=== PATIENT | female | born 1970 | race Caucasian/White ===

== ENCOUNTER 2019-05-09 20:19 | Emergency (ER) | payer SELFPAY ==
[~2019-05-09] VITALS: Ht 157.4 cm; Wt 79.4 kg
[~2019-05-09 20:19] MED LIST: AUGMENTIN 875 M1 TAB PO; CLINDAMYCIN HC300 MG PO; DILAUDID2 M1 PO; DILAUDID2 MG PO; HYDRO PO; KEFLEX500 MG PO; LINZESS145 MC1 PO; METHADONE5 MG PO; MOTRIN800 MG PO; NORTRIPTYLINE10 MG PO; PHENERGAN12.5 M1 PO; PREVACID30 M1 PO; [UNRECOGNIZED DRUG - OTHER] PO
[2019-05-09 20:33] VITALS: BP 122/67
== END 2019-05-10 00:45 | disposition home or self-care (01) ==
LOC: ED 20:19
DX: M77.9 Enthesopathy, unspecified (principal); M25.521 Pain in right elbow; Z79.899 Other long term (current) drug therapy; Z90.49 Acquired absence of other specified parts of digestive tract; F31.9 Bipolar disorder, unspecified

== ENCOUNTER 2021-11-19 18:46 | Emergency (ER) | payer SELFPAY ==
[~2021-11-19] VITALS: Ht 157.4 cm; Wt 77.1 kg
[2021-11-19 20:03] VITALS: BP 136/99
[2021-11-19 22:16] LABS: BASO % 0.4 % (0.0-1.0); EOS # 0.3 10*3/uL (0.0-0.4); EOS % 4.2 % (1.0-4.0); HEMATOCRIT 38.6 % (37.0-47.0); LYMPH # 2.4 10*3/uL (1.3-4.4); LYMPH % 35.2 % (27.0-41.0); MEAN CELL VOLUME 95.1 fl (81.0-99.0); MEAN CORPUSCULAR HGB 30.5 pg (27.0-31.0); MEAN CORPUSCULAR HGB CONC 32.1 g/dl (33.0-37.0); MEAN PLATELET VOLUME 11.3 fl (9.6-12.3); MONO # 0.5 10*3/uL (0.1-1.0); MONO % 6.7 % (3.0-9.0); NEUT # 3.6 10*3/uL (2.3-7.9); NEUT % 53.2 % (47.0-73.0); PLATELET COUNT AUTOMATED 245 10*3/uL (130-400); RED BLOOD COUNT 4.06 10*6/uL (4.10-5.10); RED CELL DISTRI WIDTH 13.1 % (0-14.5); WHITE BLOOD COUNT 6.7 10*3/uL (4.8-10.8)
[2021-11-19 22:31] LABS: ALKALINE PHOSPHATASE 68 U/L (45-117); BUN 11 mg/dl (7-24); CHLORIDE 112 mmol/L (98-107); CREATININE 0.88 mg/dL (0.55-1.02); POTASSIUM 3.7 mmol/L (3.5-5.1); SGOT/AST 13 IU/L (3-35); SGPT/ALT 15 U/L (12-78); SODIUM 144 mmol/L (136-145); TOTAL PROTEIN 7.8 gm/dL (6.4-8.2)
[2021-11-20 01:34] LABS: BILIRUBIN Negative (Negative); BLOOD Negative (Negative); CLARITY Clear (Clear); COLOR Yellow (Yellow); GLUCOSE Negative (Negative); KETONE Negative (Negative); LEUKO ESTERASE 2+ (Negative); NITRITE Negative (Negative); PH 5.5 (4.5-8.0); UROBILINOGEN 0.2 E.U./dl (0.0-1.0)
[2021-11-20] MEDS ORDERED: CEFDINIR300 MG PO (01:40)
[2021-11-20] MEDS ORDERED: MECLIZINE HCL25 M2 PO (01:40)
[2021-11-20 01:53] LABS: WBC 21-30 wbc/hpf (0-5)
== END 2021-11-20 02:02 | disposition home or self-care (01) ==
LOC: ED 18:46
PROVIDERS: Emergency Medicine
DX: H81.10 Benign paroxysmal vertigo, unspecified ear (principal); R11.0 Nausea; Z90.49 Acquired absence of other specified parts of digestive tract; Z79.899 Other long term (current) drug therapy; Z88.8 Allergy status to other drugs, medicaments and biological substances

== ENCOUNTER 2023-02-10 08:05 | Emergency (ER) | payer OTHER ==
[~2023-02-10] VITALS: Wt 81.6 kg
[~2023-02-10 08:05] MED LIST changes: +CEFDINIR300 MG PO; +MECLIZINE HCL25 M2 PO
[2023-02-10 08:27] VITALS: BP 139/80
[2023-02-10] MEDS ORDERED: NAPROXEN500 MG PO (09:07)
== END 2023-02-10 09:50 | disposition home or self-care (01) ==
LOC: ED 08:05
DX: S60.021A Contusion of right index finger without damage to nail, initial encounter (principal); S60.031A Contusion of right middle finger without damage to nail, initial encounter; F31.9 Bipolar disorder, unspecified; Z88.8 Allergy status to other drugs, medicaments and biological substances; Z90.49 Acquired absence of other specified parts of digestive tract; Z98.890 Other specified postprocedural states; W23.0XXA Caught, crushed, jammed, or pinched between moving objects, initial encounter; Y93.89 Activity, other specified; Y92.89 Other specified places as the place of occurrence of the external cause; Y99.0 Civilian activity done for income or pay